=== PATIENT | male | born 1940 | race Caucasian/White ===

== ENCOUNTER → 2017-04-21 | Day surgery (SDC) | payer OTHER ==
[~2017-04-21] MED LIST: ACETAMINOPHEN 1000 MG/100 ML 100 ML IV ONE; ASPI325T PO; BACITRACIN TOP OINT 15 GM TUBE ONE; BALANCED SALT SOLN OPHT IRRIG 15 ML BTL ONE; BUPIVACAINE/EPINEPHRINE 0.25% 50 ML VIAL ONE; FISH1000 PO; HYDR-2768 PO; LACTATED RINGER'S 1000 ML INJ 1,000 ML ONE; LIDOCAINE 2%/EPINEPHrine PF 1:200,000 20ML SDV ONE; MIDAZOLAM HCL 2 MG/2 ML VIAL ONE; NEOMYCIN/POLYMYXIN/HYDROCORT OTIC SUSP 10 ML BTL ONE; ONDANSETRON HCL 4 MG/2 ML VIAL IV PUSH ONE; PREV30CA36 PO; PRIN10TA PO; PROPOFOL 200 MG/20 ML AMP IV ONE; TAB-TAB PO; TAMS0.4C67 PO; VITA10002 PO; ceFAZolin INJ 1,000 MG VIAL ONE
--- NOTE | 2017-04-21 08:29 | TN ---
cc: ALFRED KNIGHT M.D. DATE OF SURGERY 04/21/2017 PREOPERATIVE DIAGNOSIS Multiple skin lesions on the head and neck including the left hand. POSTOPERATIVE DIAGNOSIS Multiple skin lesions on the head and neck including the left hand. PROCEDURE Including the repair, is as follows: 1. A wide local excision of basal cell carcinoma located on the left center forehead, left primary defect 3 x 3 cm. This required a V to Y tissue arrangement reconstruction with A secondary defect of 11 x 4 centimeters totaling 53 sq cm.. 2. 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 The lesion including the defect is 2 cm x 1 cm. This required intermediate repair of 2 cm.. Then lesions actinic keratosis irritating on the lateral dorsum of the hand, 1 cm destruction and curettage. 3. Actinic keratosis of the nasal tip of 1 cm. Destruction and Curettage. 4. Right cheek actinic keratosis a centimeter lesion. Destruction and curettage. 5. Right lateral forehead 1 cm actinic keratosis destruction and Curettage. 6. Right medial forehead 1 cm. Destruction and curettage. 7. Right posterior forehead lesion. Destruction and curettage 1 cm. 8. Left forehead 1 cm medially. 9. Left medial forehead 1 cm actinic keratosis destruction and Curettage. 10. Left forehead posterior 1 cm destruction and curettage. 11. Left preauricular lesion 1 cm actinic keratosis destruction and curettage. SURGEON Alfred Knight MD/FACS ANESTHESIA LMA general utilizing 10 cc of 1% lidocaine with epinephrine. ESTIMATED BLOOD LOSS Minimal COMPLICATIONS None DRAINS None PROCEDURE He was properly consented, marked, properly anesthetized. The skin was sterilized with Microcyn and sterile draping applied. Excision was done of the center forehead lesion including the margins 3 x 3 cm. This was reconstructed utilizing a tissue arrangement V to Y reconstruction by a secondary defect of 11 x 4 totaling 53 sq cm. This was properly advanced and inset utilizing 4-0 Monocryl suture and a running 5-0 fast-absorbing gut was utilized for the skin. The lesion on the left dorsum of the hand was excised including the lesion for a grand total of 2 x 1 cm. It was closed with an intermediate repair of 2 cm utilizing 4-0 Monocryl suture and 4-0 Prolene suture. All the rest of the lesions, as previously mentioned including the dorsum of the left hand, the nasal tip, right cheek, right forehead lateral, right forehead medial, right forehead posterior, left forehead medial x 2, left forehead posterior, left posterior preauricular were well as 1 cm and those were performed with destruction and curettage utilizing the 15 blade down to the papillary reticular dermis and electrocauterized for the capillary bleeders. Each and every one underwent a dressing with antibiotic ointment and absorbent dressing applied. Good viability of the tissue was noted at the end of the case for the flap for the tissue arrangement of the forehead. The patient was awakened and extubated in the operating room, transferred back to the postanesthesia care unit in stable conditions. No complications appreciated. The patient tolerated the procedure fairly well. MD DOUG Gutiérrez/JOHN /8:06 AM /8:16 AM [id number]
== END | disposition home or self-care (01) ==
LOC: ESDC 06:14
PROVIDERS: ATTEND Plastic Surgery
DX: C44.319 Basal cell carcinoma of skin of other parts of face (principal); C44.619 Basal cell carcinoma of skin of left upper limb, including shoulder; L57.0 Actinic keratosis
CPT/HCPCS: 00300; 00400; 11622; 14301; 17000; 17003; 88305; J0131; J0690; J2250; J2405; J3010; J7120